=== PATIENT | female | born 1990 | race Caucasian/White ===

== ENCOUNTER 2019-08-14 20:56 | Inpatient (IN) | payer OTHER ==
[2019-08-14] MEDS ORDERED: LIDOCAINE 1% (MPF) 30 ML INJ INJ (22:00)
[2019-08-14] MEDS ORDERED: MINERAL OIL LIGHT 10 ML VIAL TOP (22:30)
[2019-08-14] MEDS: LACTATED RINGER'S 1,000 ML IV (23:02)
[2019-08-14] MEDS: MISOPROSTOL 50 MCG CAPSULE PO (23:18)
[2019-08-15] MEDS: MISOPROSTOL 50 MCG CAPSULE PO (03:30)
[2019-08-15] MEDS ORDERED: OXYTOCIN 30 UNITS/LR 500 ML IV (08:00)
[2019-08-15] MEDS ORDERED: NALOXONE (0.4 MG/ML) INJ IV (11:00)
[2019-08-15] MEDS ORDERED: FENTAnyl 2MCG/ML-ROPIV 0.2% 100 ML BAG EPI (11:00)
[2019-08-15] MEDS: LACTATED RINGER'S 1,000 ML IV ×4 (11:10→19:03)
[2019-08-15] MEDS ORDERED: TERBUTALINE 1 ML (12:57)
[2019-08-15] MEDS: TERBUTALINE 1 MG/ML INJ SC (13:03)
[2019-08-15] MEDS: METHYLERGONOVINE 0.2 MG INJ IM (18:03)
[2019-08-15] MEDS: CARBOPROST 250 MCG INJ IM ×2 (18:09→18:51)
[2019-08-15] MEDS: MISOPROSTOL 200 MCG TAB PR (18:13)
[2019-08-15] MEDS: OXYTOCIN 30 UNITS/LR 500 ML IV ×3 (18:30→19:04)
[2019-08-15] MEDS ORDERED: ONDANSETRON 4 MG INJ (18:36)
[2019-08-15] MEDS: ONDANSETRON 4 MG INJ IV (18:45)
[2019-08-15] MEDS ORDERED: FENTAnyl 50 MCG/ML VIAL (19:19)
[2019-08-15] MEDS ORDERED: METOCLOPRAMIDE 10 MG INJ (20:13)
[2019-08-15] MEDS ORDERED: OXYTOCIN 10 UNIT INJ (20:15)
[2019-08-15] MEDS: PIPER-TAZO 3.375 GM IV (PMX) 100 ML IVPB (21:29)
[2019-08-15] MEDS: PHYTONADIONE 10 MG/ML INJ IM (22:00)
[2019-08-15] MEDS: TRANEXAMIC ACID 1GM/100ML(PMX) 100 ML IVPB (22:30)
[2019-08-15] MEDS ORDERED: MISOPROSTOL 50 MCG CAPSULE PO (23:00)
[2019-08-15] MEDS: FUROSEMIDE 20 MG INJ IV (23:24)
[2019-08-16] MEDS: MISOPROSTOL 50 MCG CAPSULE PO ×5 (00:14→00:15)
[2019-08-16] MEDS ORDERED: DIPHENOXYLATE/ATROPINE TAB PO (01:00)
[2019-08-16] MEDS: morphine 4 MG/ML VIAL IV ×5 (02:51→20:42)
[2019-08-16] MEDS: OXYTOCIN 30 UNITS/LR 500 ML IV ×9 (03:03→21:12)
[2019-08-16] MEDS: POTASSIUM CHLORIDE 50 ML IVPB ×3 (05:02→13:47)
[2019-08-16] MEDS: PIPER-TAZO 3.375 GM IV (PMX) 100 ML IVPB ×4 (05:07→19:36)
[2019-08-16] MEDS ORDERED: POTASSIUM CHLORIDE 100 ML IVPB (09:00)
[2019-08-16] MEDS: MAGNESIUM SULFATE 4 GM/100 ML 100 ML IVPB (12:20)
[2019-08-16] MEDS: LACTATED RINGER'S 1,000 ML IV ×2 (13:37→21:37)
[2019-08-17] MEDS: PIPER-TAZO 3.375 GM IV (PMX) 100 ML IVPB ×4 (00:02→18:10)
[2019-08-17] MEDS: HYDROCODONE/APAP (5/325) TAB PO ×2 (02:36→02:39)
[2019-08-17] MEDS: LACTATED RINGER'S 1,000 ML IV ×3 (04:13→13:20)
[2019-08-17] MEDS: IBUPROFEN 800 MG TAB PO ×2 (11:39→23:11)
[2019-08-17] MEDS: WITCH HAZEL/GLYCERIN PAD PR (18:20)
[2019-08-18] MEDS: PIPER-TAZO 3.375 GM IV (PMX) 100 ML IVPB ×3 (00:42→11:40)
[2019-08-18] MEDS: LACTATED RINGER'S 1,000 ML IV ×2 (02:40→06:18)
== END 2019-08-18 17:10 | disposition home or self-care (01) | DRG 768 ==
LOC: ICU 08-16 03:34 → L-D 20:56 → PP1 08-16 21:32
PROC: 10E0XZZ Delivery of Products of Conception, External Approach (ICD-10-PCS; principal; 2019-08-15)
PROC: 0W3R7ZZ Control Bleeding in Genitourinary Tract, Via Natural or Artificial Opening (ICD-10-PCS; 2019-08-15)
PROC: 0HQ9XZZ Repair Perineum Skin, External Approach (ICD-10-PCS; 2019-08-15)
PROC: 06HY33Z Insertion of Infusion Device into Lower Vein, Percutaneous Approach (ICD-10-PCS; 2019-08-15)
PROC: 30233K1 Transfusion of Nonautologous Frozen Plasma into Peripheral Vein, Percutaneous Approach (ICD-10-PCS; 2019-08-15)
PROC: 30233N1 Transfusion of Nonautologous Red Blood Cells into Peripheral Vein, Percutaneous Approach (ICD-10-PCS; 2019-08-15)
PROC: 30233R1 Transfusion of Nonautologous Platelets into Peripheral Vein, Percutaneous Approach (ICD-10-PCS; 2019-08-15)
PROC: 30233M1 Transfusion of Nonautologous Plasma Cryoprecipitate into Peripheral Vein, Percutaneous Approach (ICD-10-PCS; 2019-08-15)
DX: O48.0 Post-term pregnancy (principal); Z37.0 Single live birth; D65 Disseminated intravascular coagulation [defibrination syndrome]; J69.0 Pneumonitis due to inhalation of food and vomit; O41.03X0 Oligohydramnios, third trimester, not applicable or unspecified; O72.1 Other immediate postpartum hemorrhage; O99.13 Other diseases of the blood and blood-forming organs and certain disorders involving the immune mechanism complicating the puerperium; D62 Acute posthemorrhagic anemia; O90.81 Anemia of the puerperium; O36.63X0 Maternal care for excessive fetal growth, third trimester, not applicable or unspecified; O70.0 First degree perineal laceration during delivery; O99.53 Diseases of the respiratory system complicating the puerperium; E87.8 Other disorders of electrolyte and fluid balance, not elsewhere classified; R11.2 Nausea with vomiting, unspecified; Z3A.41 41 weeks gestation of pregnancy; Z87.891 Personal history of nicotine dependence
CPT/HCPCS: 36415; 36430; 36600; 62322; 71045; 76815; 80053; 80069; 81001; 82803; 83010; 83615; 83735; 84145; 84560; 85025; 85045; 85384; 85610; 85730; 86592; 86644; 86850; 86900; 86901; 86920; 87040-91; 87081; 87086; 87340; 88307; 99464